=== PATIENT | male | born 1950 | race Caucasian/White ===

== ENCOUNTER → 2017-12-13 | Outpatient (CLI) | payer MEDICARE, OTHER ==
[2017-12-13 18:43] LABS: ALBUMIN 3.9 gm/dL (3.5-5.0); BILIRUBIN,TOTAL 0.7 mg/dL (0.0-1.0); CHOLESTEROL RISK RATIO 3.3; CREATININE, serum 0.87 mg/dL (0.66-1.25); TOTAL PROTEIN 6.4 gm/dL (6.4-8.2)
[2017-12-13 19:13] LABS: THYROID STIMULATING HORMONE 3.04 uIU/mL (0.465-4.680)
== END ==
LOC: COL.LAB 04:44 → EDSTATUS 17:57
PROVIDERS: Emergency Medicine
DX: E78.00 Pure hypercholesterolemia, unspecified (principal); E03.9 Hypothyroidism, unspecified

== ENCOUNTER → 2018-07-27 | Outpatient (CLI) | payer MEDICARE, OTHER ==
[2018-07-27 18:35] LABS: TRICYCLIC ANTIDEPRESS URINE NEGATIVE
== END ==
LOC: ZCOL.LAB 16:54
PROVIDERS: Family Medicine
DX: Z51.81 Encounter for therapeutic drug level monitoring (principal)